=== PATIENT | female | born 1970 | race Caucasian/White ===

== ENCOUNTER 2021-03-27 16:30 | Emergency (ER) | payer OTHER ==
[~2021-03-27] VITALS: Ht 165.1 cm; Wt 81.7 kg
[2021-03-27 19:03] LABS: INFLUENZA A ANTIGEN Negative (Negative); INFLUENZA B ANTIGEN Negative (Negative)
[2021-03-27] MEDS ORDERED: TESSALON PERLE100 MG PO ×2 (19:10→19:15)
[2021-03-27] MEDS ORDERED: APAP W/CODEINE1 TA2 PO ×2 (19:10→19:15)
[2021-03-27 19:21] VITALS: BP 131/77
== END 2021-03-27 19:21 | disposition home or self-care (01) ==
LOC: M.ERS 16:30
PROVIDERS: Physician Assistant
DX: U07.1 COVID-19 (principal); Z91.040 Latex allergy status